=== PATIENT | female | born 1995 | race African-American/Black ===

== ENCOUNTER 2021-08-07 19:55 | Emergency (ER) | payer OTHER ==
[2021-08-07 21:05] LABS: BILIRUBIN NEGATIVE (NEGATIVE); BLOOD 2+ Ery/uL (NEGATIVE); CLARITY CLEAR (CLEAR); COLOR YELLOW (YELLOW); GLUCOSE (U) NORMAL (NORMAL); LEUKOCYTES NEGATIVE Leu/uL (NEGATIVE); NITRITE NEGATIVE (NEGATIVE); PROTEIN NEGATIVE (NEGATIVE); SPECIFIC GRAVITY 1.025 (1.001-1.030); UROBILINOGEN 0.2 mg/dL (0.2-1.0)
[2021-08-07 21:05] LABS: BASOPHIL 0.4 % (0-2); EOSINOPHIL 0.4 % (0-5); HCT 37.7 % (37.0-47.0); MCH 26.9 pg (25.0-31.0); MCHC 31.8 g/dL (32.0-36.0); MCV 84.5 fL (78.0-100.0); MONOCYTE 14.7 % (0-12); MPV 9.6 fL (6.0-9.5); NRBC 0; PLT 302 K/uL (150-400); RBC 4.46 M/uL (4.20-5.40); RDW 14.9 % (11.5-14.0); WBC 5.5 K/uL (4.0-10.5)
[2021-08-07 21:11] LABS: BACTERIA TRACE
[2021-08-07 21:12] LABS: SQUAMOUS EPITHELIAL CELLS RARE; URINARY RBC RARE; URINARY WBC RARE
[2021-08-07 21:18] LABS: ALBUMIN 3.6 g/dL (3.4-5.0); BILIRUBIN - TOTAL 0.2 mg/dL (0.2-1.0); BUN/CREAT RATIO (CALC) 10.4 RATIO; CREATININE 1.15 mg/dL (0.51-0.95); GLOBULIN (CALCULATION) 3.9 g/dL; POTASSIUM 3.7 mmol/L (3.5-5.1); TOTAL PROTEIN 7.5 g/dL (6.4-8.2)
[2021-08-07 21:36] LABS: INFLUENZA A NAA NEGATIVE (NEGATIVE)
[2021-08-07 21:45] LABS: CORONAVIRUS 2019 SARS-COV-2 POSITIVE (NEGATIVE)
== END 2021-08-07 23:30 | disposition home or self-care (01) ==
LOC: FER 19:55
PROVIDERS: Physician Assistant
DX: U07.1 COVID-19 (principal)
CPT/HCPCS: 36415; 80053; 81001; 83690; 85025; 87880; 99283; U0002